=== PATIENT | female | born 1965 | race African-American/Black ===

== ENCOUNTER 2017-07-06 19:25 | Emergency (ER) | payer OTHER ==
[~2017-07-06] VITALS: Ht 152.4 cm; Wt 91.6 kg
[~2017-07-06 19:25] MED LIST: FLEXERIL10 MG PO; VICODIN5-300 PO
--- NOTE | 2017-07-06 20:08 | ED GENERAL ADULT ---
History of Present Illness General Chief Complaint: General Adult Stated Complaint: PT BRONCHITIS IS ACTING UP AND LT SHOULDER HURT Source: patient Exam Limitations: no limitations Vital Signs & Intake/Output Vital Signs & Intake/Output Vital Signs Date Time Temp Pulse Resp B/P B/P Pulse O2 O2 Flow FiO2 Mean Ox Delivery Rate 07/063 98.4 83 16 130/60 96 Room Air 07/067 97.0 78 18 126/82 97 Room Air Allergies Coded Allergies: No Known Allergies (05/14/15) Reconcile Medications No Known Home Medications Triage Note: RECEIVED 52 YO FEMALE WITH HX OF BRONCHITIS C/O PRODUCTIVE CLEAR COUGH X 4 DAYS WITH INTERMITTENT SOB WITH COUGHING, PT ALSO C/O ;EFT SHOULDER AREA PAIN WITH SWELLING X 4 DAYS. PT DENIES INJURY TO LEFT SHOULDER. PT DENIES CHEST PAIN. O2 SATS 97% Triage Nurses Notes Reviewed? yes Onset: Abrupt Duration: day(s): Timing: recent history HPI: 07/06/17 10 PM 52-year-old female presents to the emergency department with pleuritic chest wall pain and left shoulder pain. She also admits to a cough productive of yellowish sputum. She denies shortness of breath. She denies any history of asthma or heart disease. She works as a cook. Past History Travel History Traveled to [place] past 21 day No Medical History Any Pertinent Medical History? see below for history Neurological: NONE EENT: NONE Cardiovascular: NONE Respiratory: NONE Gastrointestinal: NONE Hepatic: NONE Renal: NONE Musculoskeletal: NONE Psychiatric: NONE Endocrine: NONE Blood Disorders: NONE Cancer(s): NONE [employer] SUPER[employer]/Reproductive: NONE Surgical History Surgical History: non-contributory Psychosocial History Who do you live with Patient/Self Services at Home None What is your primary language Bulgarian Tobacco Use: Current Daily Use Daily Tobacco Use Amount/Type: => 5 Cigarettes daily Family History Hx Contributory? No Review of Systems Review of Systems Constitutional: Denies: fever. EENTM: Reports: no symptoms. Respiratory: Denies: short of breath. Cardiovascular: Reports: chest pain. GI: Denies: abdominal pain. Genitourinary: Reports: no symptoms. Musculoskeletal: Reports: see HPI. Skin: Reports: no symptoms. Neurological/Psychological: Reports: no symptoms. Hematologic/Endocrine: Reports: no symptoms. Immunologic/Allergic: Reports: no symptoms. Physical Exam Physical Exam General Appearance: well developed/nourished, alert, awake, anxious, mild distress Head: atraumatic, normal appearance Eyes: Bilateral: normal appearance, PERRL, EOMI. Ears, Nose, Throat: normal pharynx, normal ENT inspection, hearing grossly normal Neck: normal inspection, supple, full range of motion Respiratory: rhonchi Cardiovascular: regular rate/rhythm Peripheral Pulses: 4+ radial (R), 4+ radial (L) Gastrointestinal: non-tender Back: normal range of motion Extremities: tenderness Neurologic/Psych: no motor/sensory deficits, awake, alert, oriented x 3 Skin: intact, normal color, warm/dry Core Measures ACS in differential dx? No CVA/TIA Diagnosis: No Sepsis Present: No Sepsis Focused Exam Completed? No Progress Differential Diagnoses I considered the following diagnoses in my evaluation of the patient: [Coronary vasospasm, bronchitis, pneumonia, pneumothorax, calcific tendinitis, aortic dissection] Plan of Care: Orders Procedure Date/time Status TROPONIN LEVEL 07/06 2229 Complete EKG 07/06 2229 Active Add-on Test (ER Only) 07/06 2054 Active D-DIMER 07/06 2025 Complete URINE DRUG SCREEN FOR ER ONLY 07/06 1936 Complete TROPONIN LEVEL 07/06 1936 Complete COMPREHENSIVE METABOLIC PANEL 07/06 1936 Complete CBC WITHOUT DIFFERENTIAL 07/06 1936 Complete EKG 07/06 1936 Active Laboratory Tests 07/06/172216: Troponin I < 0.01 07/06/172031: Urine Opiates Screen < 100, Methadone Screen < 40, Barbiturate Screen < 60, Ur Phencyclidine Scrn < 6.00, Amphetamines Screen < 100, U Benzodiazepines Scrn < 85, Urine Cocaine Screen > 1000 H, Urine Cannabis Screen 79.80 H 07/06/172025: Anion Gap 11, Estimated GFR 58 L, BUN/Creatinine Ratio 16.0, Glucose 105 H, Calcium 10.0, Total Bilirubin 0.7, AST 22, ALT 26, Alkaline Phosphatase 102, Troponin I < 0.01, Total Protein 7.4, Albumin 4.4, Globulin 3.0, Albumin/ Globulin Ratio 1.5, D-Dimer High Sensitivty < 200, CBC w Diff NO MAN DIFF REQ, RBC 4.60, MCV 86.2, MCH 27.9, MCHC 32.4 L, RDW 14.1, MPV 8.5, Gran % 56.7, Lymphocytes % 30.7, Monocytes % 8.0, Eosinophils % 4.4, Basophils % 0.2, Absolute Granulocytes 5.5, Absolute Lymphocytes 3.0, Absolute Monocytes 0.8 H, Absolute Eosinophils 0.4, Absolute Basophils 0 Initial ED EKG: NSR Departure Departure Disposition: HOME OR SELF CARE Condition: Stable Clinical Impression Primary Impression: Chest pain Secondary Impressions: Bronchitis, Bursitis Referrals: Unknown (PCP/Family) Departure Forms: Customer Survey General Discharge Information Prescriptions: Current Visit Scripts No Known Home Medications Comments 07/06/17 11:09 PM The patient's symptoms are significantly improved. She does have tenderness to the left shoulder and pain with motion. X-ray shows calcific tendinitis. Urine drug screen was positive for cocaine. The patient denied this. She has had 2 negative EKGs and normal troponins. Will give antibiotics and ibuprofen and she'll follow-up with her doctor or with [facility] practice physician on Sunday. I considered pulmonary embolism but the d-dimer was negative I considered acute coronary syndrome she has 2 negative troponins and normal EKGs I considered aortic dissection but she has a normal mediastinum on chest x-ray, and had a cough and the pain is pleuritic Critical Care Note Critical Care Note Critical Care Time: non-applicable
--- NOTE | 2017-07-06 20:32 | RADIOLOGY REPORT ---
EXAMINATION: XR CHEST CLINICAL INFORMATION: Cough. Dyspnea. COMPARISON: None TECHNIQUE: 2 views of the chest were obtained. FINDINGS: Lungs are clear. No pulmonary vascular congestion. There is no pleural effusion. The heart size is normal. The cardiac and mediastinal contours are normal. There are calcifications of the thoracic aorta. There are multilevel degenerative changes of dorsal spine. IMPRESSION: Unremarkable examination.
--- NOTE | 2017-07-06 20:33 | RADIOLOGY REPORT ---
EXAMINATION: XR SHOULDER, LEFT CLINICAL INFORMATION: Left shoulder pain. COMPARISON: None TECHNIQUE: Three views of the left shoulder. FINDINGS: There is a linear calcification adjacent to the greater tuberosity of the humerus consistent with calcific tendinosis/bursitis. Calcification measures about 1 cm. There is spurring of the acromioclavicular joint inferiorly is in question of impingement. IMPRESSION: 1. Linear calcification adjacent to the greater tuberosity of the humerus consistent with calcific tendinosis/bursitis. 2. Acromioclavicular joint spurring inferiorly raising question of impingement. This can be further assessed with MRI.
[2017-07-06 20:40] LABS: ABSOLUTE BASOPHIL COUNT 0 /CUMM (0.0-0.2); ABSOLUTE EOSINOPHIL COUNT 0.4 /CUMM (0.0-0.7); ABSOLUTE GRANULOCYTE CT 5.5 /CUMM (1.4-6.5); ABSOLUTE MONOCYTE COUNT 0.8 /CUMM (0.10-0.60); BASOPHIL % 0.2 % (0.0-2.0); EOSINOPHIL % 4.4 % (0-5); GRANULOCYTE % 56.7 % (42.2-75.2); HEMATOCRIT 39.6 % (37-47); MEAN CORPUSCULAR HGB 27.9 PG (27.0-31.0); MEAN CORPUSCULAR HGB CONC 32.4 G/DL (33.0-37.0); MEAN CORPUSCULAR VOLUME 86.2 FL (81.0-99.0); MEAN PLATELET VOLUME 8.5 FL (7.4-10.4); PLATELET COUNT 219 /CUMM (130-400); RBC DISTRIBUTION WIDTH 14.1 % (11.5-14.5); WHITE BLOOD CELL COUNT 9.7 /CUMM (4.8-10.8)
[2017-07-06 22:33] VITALS: BP 130/60
[2017-07-06] MEDS ORDERED: AMOXICILLIN500 M2 PO (23:14)
[2017-07-06] MEDS ORDERED: IBUPROFEN600 M1 PO (23:14)
[2017-07-07] MEDS ORDERED: AMOXICILLIN500 M2 PO (04:15)
[2017-07-07] MEDS ORDERED: IBUPROFEN600 M1 PO (04:15)
== END 2017-07-06 23:52 ==
LOC: ERH 19:25
PROVIDERS: Physician Assistant
DX: J40 Bronchitis, not specified as acute or chronic (principal); M75.52 Bursitis of left shoulder; R07.89 Other chest pain; F17.210 Nicotine dependence, cigarettes, uncomplicated
CPT/HCPCS: 1263; 71046; 73030-LT; 80307; 93005; 93010; 96374; 96375; J1885; J2930